=== PATIENT | female | born 2000 | race Caucasian/White ===

== ENCOUNTER 2021-12-17 15:34 | Observation (INO) | payer BC, SELFPAY ==
[2021-12-17 15:56] LABS: #Basophils 0.1 thou/uL (0.0-0.2); #Eosinphils 0.1 thou/uL (0.0-0.7); #Lymphocytes 2.8 thou/uL (1.20-3.40); #Monocytes 0.7 thou/uL (0.11-0.59); %Basophils 1.1 % (0.0-1.0); %Eosinophils 1.3 % (0.0-10.0); %Lymphocytes 41.8 % (21.0-51.0); %Monocytes 10.1 % (0.0-10.0); %Neutrophils 45.6 % (42.0-75.0); Hemoglobin 15.2 g/dL (12.0-16.0); Mean Corpuscular HGB CONC 34.5 g/dL (32.0-36.0); Mean Corpuscular Hemoglobin 34.9 pg (27.0-31.0); Mean Platelet Volume 9.3 fL (7.4-10.4); Platelet Count 237 thou/uL (130-400); Red Blood Cell (RBC) Count 4.36 mill/uL (4.20-5.40); White Blood Cell (WBC) Count 6.6 thou/uL (4.8-10.8)
[2021-12-17 16:08] LABS: BHCG - Serum Negative (NEGATIVE); Pregs Control Background? CLEAR/WHITE (CLR/WHITE); Pregs Control Bar Appear? YES (CONTROL BAR)
[2021-12-17 16:13] LABS: ALT (SGPT) 19 U/L (8-55); AST (SGOT) 21 U/L (5-34); Albumin 5.1 g/dL (3.5-5.0); Alkaline Phosphatase 59 U/L (40-110); Anion Gap 12 mmol/L (10-20); BUN (Urea Nitrogen) 17 mg/dL (7.0-18.7); Bilirubin, Total 0.2 mg/dL (0.2-1.2); Calc. Creatinine Clearance 0 mL/min (70-130); Calcium 10.2 mg/dL (7.8-10.44); Carbon Dioxide 27 mmol/L (22-29); Chloride 102 mmol/L (98-107); Estimated GFR 82; Globulin 3.4 g/dL (2.4-3.5); Glucose 91 mg/dL (70-105); Potassium 3.9 mmol/L (3.5-5.1); Protein, Total 8.5 g/dL (6.0-8.3); Sodium 137 mmol/L (136-145)
[2021-12-17 16:45] LABS: Bilirubin Negative (Negative); Blood, Urine Negative (Negative); Clarity Clear (Clear); Glucose, Urine (Dipstick) Normal (Negative); Ketone, Urine Negative (Negative); Leukocyte Negative Leu/uL (Negative); Nitrite Negative (Negative); Protein, Urine (Dipstick) Negative (Neg-Trace); Urobilinogen Normal mg/dL (Less than 2)
[2021-12-17] MEDS ORDERED: Acetaminophen 325 MG TAB PO PRN (18:45)
[2021-12-17] MEDS ORDERED: Ondansetron ODT 4 MG TAB PO PRN (18:45)
[2021-12-17 19:58] LABS: Magnesium 1.7 mg/dL (1.6-2.6); Phosphorus 3.4 mg/dL (2.3-4.7)
[2021-12-17 20:03] LABS: Troponin I Less than 0.010 ng/mL (< 0.028)
[2021-12-17 20:38] VITALS: BMI 25.0
[2021-12-17] MEDS: Lactated Ringer's 1,000 ML IV SCH (21:49)
[2021-12-18] MEDS: Lactated Ringer's 1,000 ML IV SCH (07:16)
[2021-12-18 12:06] VITALS: BP 120/72; TEMP 98
[2021-12-18 15:59] LABS: SARS-CoV-2 NAA Rapid Test Not Detected (NotDetected)
== END 2021-12-18 14:05 | disposition home or self-care (01) ==
LOC: ERS 15:34 → ERHOLD 18:16 → 2SW 20:25
PROVIDERS: ADMIT Family Medicine; ATTEND Family Medicine
DX: I95.1 Orthostatic hypotension (principal); R53.1 Weakness; J45.909 Unspecified asthma, uncomplicated; L70.9 Acne, unspecified; Z86.16 Personal history of COVID-19; Z79.2 Long term (current) use of antibiotics; Z79.899 Other long term (current) drug therapy; Z20.822 Contact with and (suspected) exposure to COVID-19
CPT/HCPCS: 36415; 71045; 80053; 81003; 83735; 84100; 84146; 84443; 84484; 84703; 85025; 85379; 93005; 96360; 96361; G0378; J7120; U0003; U0005